=== PATIENT | female | born 1960 | race Asian ===

== ENCOUNTER 2019-07-27 01:19 | Emergency (ER) | payer OTHER ==
[~2019-07-27] VITALS: Ht 157.5 cm; Wt 62.3 kg
[2019-07-27 02:13] LABS: CALCIUM 9.7 mg/dL (8.5-10.1); CARBON DIOXIDE 31.2 mmol/L (21-32); CHLORIDE SERUM 104 mmol/L (98-107); CREATININE SERUM 0.5 mg/dL (0.6-1.0); GFR1 > 60 mL/min; GLUCOSE SERUM 108 mg/dL (74-106); POTASSIUM SERUM 3.8 mmol/L (3.5-5.1); SODIUM SERUM 141 mmol/L (136-145)
[2019-07-27 02:15] LABS: BASOPHIL % 0.5 % (0-2); PLATELET COUNT 315 x10^3mcL (130-400); RED CELL DISTRIBUTION WIDTH 12.1 % (11.5-14.5)
[2019-07-27 02:17] LABS: ALKALINE PHOSPHATASE 96 U/L (46-116); ALT/SGPT 28 U/L (14-59); AST/SGOT 19 U/L (15-37); BILIRUBIN TOTAL 0.31 mg/dL (0.20-1.00); LIPASE 283 IU/L (73-393); TOTAL PROTEIN, SERUM 8.2 g/dL (6.4-8.2)
[2019-07-27 04:14] VITALS: BP 132/79
== END 2019-07-27 04:14 | disposition home or self-care (01) ==
LOC: ED 01:19
PROVIDERS: Emergency Medicine
DX: R10.816 Epigastric abdominal tenderness (principal); R10.10 Upper abdominal pain, unspecified; I10 Essential (primary) hypertension; K21.9 Gastro-esophageal reflux disease without esophagitis; Z88.2 Allergy status to sulfonamides; Z90.89 Acquired absence of other organs; Z90.710 Acquired absence of both cervix and uterus
CPT/HCPCS: 36415; J1885

== ENCOUNTER → 2019-10-02 | Day surgery (SDC) | payer OTHER ==
[~2019-10-02] VITALS: Ht 157.5 cm; Wt 62.6 kg
[2019-10-02 09:34] VITALS: BP 136/79
[2019-10-02 14:53] VITALS: BP 105/70
== END | disposition home or self-care (01) ==
LOC: GI 08:33 → OR 11:00
DX: Z12.11 Encounter for screening for malignant neoplasm of colon (principal); K63.89 Other specified diseases of intestine; K21.9 Gastro-esophageal reflux disease without esophagitis; B96.81 Helicobacter pylori [H. pylori] as the cause of diseases classified elsewhere; Z88.2 Allergy status to sulfonamides; Z79.82 Long term (current) use of aspirin; Z79.899 Other long term (current) drug therapy; Z98.42 Cataract extraction status, left eye; Z98.51 Tubal ligation status; Z90.89 Acquired absence of other organs; Z78.0 Asymptomatic menopausal state
CPT/HCPCS: 43235; 45378; J1200; J1610; J2250; J2310; J3010; J3490

== ENCOUNTER → 2019-12-14 | Outpatient (CLI) | payer OTHER | END | disposition home or self-care (01) | LOC: LB 08:19 | DX: B96.81 Helicobacter pylori [H. pylori] as the cause of diseases classified elsewhere (principal) | CPT/HCPCS: 87338 ==